=== PATIENT | male | born 1990 | race Caucasian/White ===

== ENCOUNTER 2024-05-01 12:49 | Emergency (ER) | payer OTHER, SELFPAY ==
[2024-05-01 12:50] VITALS: BP 146/71; PULSE 71; RESP 22; TEMP 35.9; O2SAT 98; BMI 29.9
[2024-05-01 12:56] VITALS: O2SAT 97
--- NOTE | 2024-05-01 12:56 | EKG12_ITS ---
Test Reason : PALP Blood Pressure : / mmHG Vent. Rate : 063 BPM Atrial Rate : 063 BPM P-R Int : 170 ms QRS Dur : 098 ms QT Int : 380 ms P-R-T Axes : 056 061 015 degrees QTc Int : 388 ms Normal sinus rhythm Normal ECG Confirmed by HEMANT BERGER, GEORGETTE ([id number]), acquisitions editor BERNARDO CORDERO ([id number]) on 05/08/2024 10:28:37 A M Referred By: LYNDSAY/RUY Confirmed By:AVERY MARCOS MD
--- NOTE | 2024-05-01 13:00 | RAD_ITS ---
STUDY: X-RAY CHEST REASON FOR EXAM: Male, 33 years old. Chest pain TECHNIQUE: Single AP portable view of the chest. COMPARISON: None. FINDINGS: EKG electrodes are seen. The lungs are clear and expanded. There is no demonstrated pleural abnormality. Normal size heart. Normal mediastinum and hector. Normal visualized pulmonary arteries. Normal visualized aortic arch and descending thoracic aorta. Normal visualized thoracic spine. Normal visualized ribs, clavicles, and shoulders. There is no demonstrated abnormality of the visualized soft tissue structures of the upper abdomen. RAD/Chest 1 View (Portable) IMPRESSION: Normal x-ray examination of the chest. Electronically Signed: George Orellana MD at 13:21 EDT ,
[2024-05-01 13:13] LABS: Absolute Lymphocyte Count 1.39 X10^3/uL (0.83-4.51); Absolute Neutrophil Count 4.1 X10^3/uL (2.0-7.7); Basophil# 0.02 X10^3/uL; Basophil% 0.3 % (0-1); Eosinophil# 0.12 X10^3/uL; Eosinophils% 1.9 % (0-5); Hematocrit 43.6 % (40-54); Hemoglobin 15.6 g/dL (13.0-16.5); Lymphocyte # 1.39 X10^3/ul (0.83-4.51); Lymphocyte % 22.5 % (19-41); Mean Corp Hgb Conc 35.8 g/dL (32-36); Mean Corpuscular Volume 86.7 fL (80-94); Mean Platelet Vol. 9.7 fl (6.2-12.0); Monocyte# 0.56 X10^3/uL; Monocyte% 9.1 % (0-10); NRBC Flagged by Analyzer 0 % (0-5); Neutrophil # 4.06 X10^3/uL (2.7-7.7); Neutrophil % 65.9 % (47-70); Platelet Count 256 K/mm3 (150-450); RBC Distribution Width CV 11.9 % (11.6-14.6); RBC Distribution Width SD 37.9 fl (35.1-43.9); Red Blood Count 5.03 M/mm3 (4.6-6.2); White Blood Count 6.2 K/mm3 (4.4-11.0)
[2024-05-01 13:32] LABS: Anion Gap 6 (5-15); BUN 9 mg/dL (7-18); BUN/Creat Ratio 10.1 RATIO (10-20); Calcium,Total 9.3 mg/dL (8.5-10.1); Chloride 107 mmol/L (98-107); Creatinine, Serum 0.89 mg/dL (0.70-1.30); EST Glomerular Filtration Rate 104 mL/min (>60); Est Glom Filt Rate - Afr Amer 126 mL/min (>60); Estimated Creatinine Clearance 144.55 ml/min; Glucose 115 mg/dL (74-106); Potassium 3.5 mmol/L (3.5-5.1); Sodium Level 139 mmol/L (136-145); Troponin-I HS (w/2H Reflex) 3 pg/mL (3.0-78.0)
[2024-05-01 13:50] VITALS: BP 93/55; PULSE 61; RESP 17
[2024-05-01 14:00] VITALS: BP 93/55; PULSE 68
[2024-05-01 14:07] VITALS: BP 120/59; PULSE 64; RESP 16; TEMP 36.6; O2SAT 100
--- NOTE | 2024-05-01 14:25 | EDS_ITS ---
HPI History of Present Illness Chief Complaint: Palpitations Narrative Narrative: 33-year-old male presented with palpitations. He states he has had this episode once in the past. He states that he felt very strongly that he had these episodes again he would come to checked out. He never was checked out previously. Denies any medical problems. He states he felt a little bit lightheaded during palpitations and nauseous. He denies vertiginous symptoms. Denies headache. Denies chest pain or shortness of breath. He is currently asymptomatic. [facility] Home Medications ?Medication ?Instructions ?Recorded ?Last Taken ?Type NK 05/01/24 Unknown History Allergy/AdvReac Type Severity Reaction Status Date / Time No Known Allergies Allergy Verified 05/01/24 12:51 Social History Smoking Status: Current every day smoker tobacco type: cigarettes ROS ROS ED ROS Narrative Lightheadedness Constitutional Constitutional ED: Denies chills, fever(s) or sweats Eyes Eyes: Denies blurry vision or change in vision ENT ENT ED: Denies ear pain or sore throat Cardiovascular Cardiovascular: Denies chest pain, palpitations or racing heartbeat Respiratory/Chest Respiratory/Chest: Denies cough, dyspnea or sputum Gastrointestinal Gastrointestinal: Reports nausea; Denies abdominal pain, constipation, diarrhea or vomiting Genitourinary Genitourinary ED: Denies dysuria, hematuria or urinary frequency Musculoskeletal Musculoskeletal: Denies arthralgias, myalgias or neck pain Integumentary Denies abscess, Abrasions or rash Neurologic Neurologic: Denies headache(s), paresthesias or weakness Psychiatric Psychiatric: Denies anxiety, depression, suicidal ideation or suicidal thoughts Endocrine Endocrinology: Denies polydipsia or polyuria EXAM Physical Exam Const Vital Signs: 05/01/24 12:50 05/01/24 12:56 05/01/24 13:50 Temperature 96.7 F L Temperature Source Temporal Pulse Rate 71 61 Respiratory Rate 22 H 17 Blood Pressure 146/71 H 93/55 L Blood Pressure Mean 96 67 Pulse Ox 98 97 Oxygen Delivery Method Room Air Room Air 05/01/24 14:00 05/01/24 14:07 Temperature 97.8 F Temperature Source Pulse Rate 68 64 Respiratory Rate 16 Blood Pressure 93/55 L 120/59 L Blood Pressure Mean 67 79 Pulse Ox 100 Oxygen Delivery Method Positive well nourished General Appearance ED: Negative for pallor HEENT Reports moist mucous membranes HEENT Narrative: Negative Mayte-Hallpike Eyes PERRL and EOMs intact bilaterally Resp normal respiratory effort and clear to auscultation bilaterally Auscultation: Negative for rales, rhonchi or wheezes Cardio regular rate and regular rhythm GI normal to inspection, nondistended, normoactive bowel sounds Extremity normal to inspection Neuro oriented x3 and CN's II-XII intact bilaterally Sensorium / Orientation: alert Motor Exam: strength 5/5 throughout Psych mental status grossly normal Skin no rashes or lesions noted and no wounds General Skin Exam: Negative for jaundice or pallor MDM MDM MDM Narrative Medical decision making narrative: Patient presenting with nausea, lightheadedness, palpitations. Differential includes dysrhythmia, dehydration, anemia, electrolyte abnormalities, pneumonia much less likely ACS. CBC will be obtained to assess white blood cell count, hemoglobin, platelets. BMP to assess renal function, electrolytes, glucose. High-sensitivity troponin and EKG to assess for ischemia/dysrhythmia. Chest x-ray to rule out pneumonia. CBC shows normal white blood cell count of 6.2. Hemoglobin 15.6. Platelets are normal 9.7. Renal function and electrolytes within normal limits. High-sensitivity troponin less than 3. EKG sinus rhythm with ventricular rate of 63 bpm without sign of ischemic change or dysrhythmia. Chest x-ray interpreted by myself shows no acute process. Discussed with the patient that this may be possible in the an atypical presentation of vertigo and offered to give him meclizine but he declines. He does not want any medication here in the ER. Return precautions were discussed. Impression: 1. Palpitations 2. Nausea 3. Lightheadedness Lab Data Attestation: I reviewed the patient's lab results. Labs: Laboratory Results - last 24 hr 05/01/24 12:57 WBC 6.2 RBC 5.03 Hgb 15.6 Hct 43.6 MCV 86.7 MCH 31.0 MCHC 35.8 RDW Std Deviation 37.9 RDW Coeff of Latosha 11.9 Plt Count 256 MPV 9.7 Immature Gran % (Auto) 0.300 Neut % (Auto) 65.9 Lymph % (Auto) 22.5 [place] % (Auto) 9.1 Eos % (Auto) 1.9 Baso % (Auto) 0.3 Absolute Neuts (auto) 4.1 Absolute Lymphs (auto) 1.39 Nucleated RBC % 0 Sodium 139 Potassium 3.5 Chloride 107 Carbon Dioxide 26.0 Anion Gap 6 BUN 9 Creatinine 0.89 Estim Creat Clear Calc 144.55 Est GFR (MDRD) Af Amer 126 Est GFR (MDRD) Non-Af 104 BUN/Creatinine Ratio 10.1 Glucose 115 H Calcium 9.3 Troponin I High Sens 3 Radiography Diagnostic Testing: Clinical Impression(s) from Imaging Studies Chest X-Ray 05/01/24 13:00 IMPRESSION: Normal x-ray examination of the chest. Electronically Signed: George Orellana MD at 13:21 EDT , Discharge Plan Triage Chief Complaint: Palpitations ED Provider: Julio Gasca Dx/Rx/DC Orders Instructions: ED Palpitations Prescriptions: No Action NK Primary Care Provider: Care Physician,No Primary Referrals: [facility] [Provider Group] - 3-5 Days if not improving Care Physician,No Primary [Primary Care Provider] - Print Language: Yoruba Disposition Disposition: Home, Self Care Discharge Date/Time: 05/01/24 14:14
[2024-05-01 15:08] LABS: Reflex Troponin-HS? (from REC) Y
== END 2024-05-01 14:14 | disposition home or self-care (01) ==
PROVIDERS: Emergency Provider Student in an Organized Health Care Education/Training Program; Visit Provider Student in an Organized Health Care Education/Training Program
DX: R00.2 Palpitations (principal); R42 Dizziness and giddiness; R11.0 Nausea; F17.210 Nicotine dependence, cigarettes, uncomplicated
CPT/HCPCS: 71045; 80048; 84484; 85025; 93005; 99283; A4216